=== PATIENT | male | born 1985 | race Caucasian/White ===

== ENCOUNTER 2020-03-07 23:03 | Emergency (ER) | payer OTHER ==
[~2020-03-07] VITALS: Ht 182.9 cm; Wt 66.5 kg
[2020-03-07 23:07] VITALS: BP 143/45
[2020-03-07] MEDS ORDERED: DIPH,PERTUSS(ACELL),TET VAC/PF 0.5 ML IM-VACC ONE ×2 (23:30→23:34)
[2020-03-07] MEDS ORDERED: LIDOCAINE-MPF 1%, 5ML INFIL ONE (23:30)
[2020-03-07] MEDS ORDERED: LIDOCAINE-MPF 1%, 5ML ONE (23:34)
[2020-03-08] MEDS ORDERED: NEOSPORIN OINT. PKT 1 PACKET ONE (00:14)
== END 2020-03-08 00:19 | disposition home or self-care (01) ==
LOC: ED 03-08
DX: S61.011A Laceration without foreign body of right thumb without damage to nail, initial encounter (principal); F17.210 Nicotine dependence, cigarettes, uncomplicated; W45.8XXA Other foreign body or object entering through skin, initial encounter; Y93.89 Activity, other specified; Y92.69 Other specified industrial and construction area as the place of occurrence of the external cause; Y99.8 Other external cause status
CPT/HCPCS: 12041; 90471; 90715; 99284